=== PATIENT | female | born 1980 | race Caucasian/White ===

== ENCOUNTER 2019-12-24 18:50 | Emergency (ER) | payer OTHER, SELFPAY ==
[2019-12-24] MEDS ORDERED: Lidocaine 2% w/Epinephrine 1:200K 20 ML VIAL ONE (19:01)
[2019-12-24] MEDS ORDERED: Acetaminophen 500 MG TAB ONE (19:14)
[2019-12-24] MEDS ORDERED: Boostrix 0.5 ML (Tdap) VIAL ONE (19:14)
== END 2019-12-24 19:32 | disposition home or self-care (01) ==
LOC: MADERS 18:50
DX: S01.01XA Laceration without foreign body of scalp, initial encounter (principal); W22.8XXA Striking against or struck by other objects, initial encounter
CPT/HCPCS: 12001; 90471; 90715

== ENCOUNTER 2020-11-14 09:28 | Emergency (ER) | payer SELFPAY ==
[2020-11-14 13:22] LABS: ALT (SGPT) 26 U/L (8-55); AST (SGOT) 27 U/L (5-34); Albumin 4.3 g/dL (3.5-5.0); Alkaline Phosphatase 56 U/L (40-110); Anion Gap 12 mmol/L (10-20); BUN (Urea Nitrogen) 9 mg/dL (7.0-18.7); Bilirubin, Total 0.5 mg/dL (0.2-1.2); CK (CPK) 43 U/L (29-168); Calc. Creatinine Clearance 0 mL/min (70-130); Calcium 9.6 mg/dL (7.8-10.44); Carbon Dioxide 25 mmol/L (22-29); Chloride 106 mmol/L (98-107); Globulin 4.5 g/dL (2.4-3.5); Glucose 110 mg/dL (70-105); Potassium 3.8 mmol/L (3.5-5.1); Protein, Total 8.8 g/dL (6.0-8.3); Sodium 139 mmol/L (136-145)
[2020-11-14 13:23] LABS: Mean Corpuscular HGB CONC 30.2 g/dL (32.0-36.0); Mean Corpuscular Hemoglobin 27.2 pg (27.0-31.0); Mean Corpuscular Volume 89.9 fL (78.0-98.0); Mean Platelet Volume 9.1 fL (7.4-10.4); Platelet Count 204 thou/uL (130-400); RBC Distribution Width 12.6 % (11.5-14.5); Red Blood Cell (RBC) Count 5.14 mill/uL (4.20-5.40)
[2020-11-14 13:24] LABS: CKMB 0.4 ng/mL (0-6.6)
[2020-11-14 13:34] LABS: Band 3 % (5-11); Eosinophils 1 % (0-10); Lymphocytes 49 % (21-51); MDiff Complete? YES; Manual Diff?? YES; Monocytes 9 % (0-10); Neutrophil 38 % (42-75)
[2020-11-14 13:35] LABS: Anisocytosis SLIGHT = 6-15 cells (100X) (0-5/hpf); Platelet Morphology Comment Appears Adequate
== END 2020-11-14 14:22 | disposition home or self-care (01) ==
LOC: MADERS 09:28
DX: F43.0 Acute stress reaction (principal); E03.9 Hypothyroidism, unspecified; M06.9 Rheumatoid arthritis, unspecified; M35.00 Sjogren syndrome, unspecified
CPT/HCPCS: 71045; 80053; 82550; 82553; 84443; 84484; 85025; 93005